=== PATIENT | female | born 1955 | race Caucasian/White ===

== ENCOUNTER 2017-02-11 12:56 | Emergency (ER) | payer OTHER ==
[2017-02-11 14:57] VITALS: BP 143/59
--- NOTE | 2017-02-11 15:16 | UC ---
Skin Complaint HPI - HPI Summary HPI Summary: bruises on the back of her right thigh--wants to be sure it is not Lyme--Has no known tick bite - History of Current Complaint Chief Complaint: UCSkin Time Seen by Provider: 02/11/17 15:13 Stated Complaint: TICK BITE Hx Obtained From: Patient ?: No Onset/Duration: Sudden Onset, Lasting Days, Still Present Timing: Constant Current Severity: None Location: Discrete - puple/red peticheal rash--not growing in size is itchy and not warm to touch Character: Redness Aggravating: Nothing Alleviating: Nothing Associated Signs & Symptoms: Positive: Negative Related History: Insect Bite/Sting - Allergy/Home Medications Allergies/Adverse Reactions: Allergies Allergy/AdvReac Type Severity Reaction Status Date / Time Cephalexin [From Keflex] Allergy Severe ITCHY HIVES Verified 02/11/17 15:26 Review of Systems Constitutional: Negative Skin: Rash - peticheal on back on right thigh Eyes: Negative ENT: Negative Respiratory: Negative Cardiovascular: Negative Gastrointestinal: Negative Genitourinary: Negative Motor: Negative Neurovascular: Negative Musculoskeletal: Negative Neurological: Negative Psychological: Negative All Other Systems Reviewed And Are Negative: Yes PMH/Surg Hx/FS Hx/Imm Hx Previously Healthy: No Endocrine History: Hypothyroidism, Dyslipidemia Cardiovascular History: Hypertension Other History Of: Negative For: Anticoagulant Therapy - Surgical History Surgical History: Yes Surgery Procedure, Year, and Place: 1964 TONSILLECTOMY - Family History Known Family History: Positive: None Family History: no cardiovascular issues in family lineage reported - Social History Occupation: Employed Full-time Lives: Alone Alcohol Use: None Substance Use Type: None Smoking Status (MU): Never Smoked Tobacco - Immunization History Most Recent Tetanus Shot: 2004 Physical Exam Triage Information Reviewed: Yes Appearance: Well-Appearing, No Pain Distress, Well-Nourished Vital Signs: Initial Vital Signs Temp 97.9 F 02/11/17 14:56 Pulse 89 02/11/17 14:56 Resp 16 02/11/17 14:56 BP 143/59 02/11/17 14:56 Pulse Ox 100 02/11/17 14:56 Vital Signs Reviewed: Yes Eye Exam: Normal Eyes: Positive: Conjunctiva Clear ENT Exam: Normal ENT: Positive: Normal ENT inspection, Hearing grossly normal, Pharynx normal, TMs normal. Negative: Nasal congestion, Nasal drainage, Trismus, Muffled/ hoarse voice Dental Exam: Normal Neck exam: Normal Neck: Positive: Supple, Nontender, No Lymphadenopathy Respiratory Exam: Normal Respiratory: Positive: Chest non-tender, Lungs clear, Normal breath sounds, No respiratory distress, No accessory muscle use Cardiovascular Exam: Normal Cardiovascular: Positive: RRR, No Murmur, Pulses Normal, Brisk Capillary Refill Musculoskeletal Exam: Normal Musculoskeletal: Positive: Strength Intact, ROM Intact, No Edema Neurological Exam: Normal Neurological: Positive: Alert, Muscle Tone Normal Psychological Exam: Normal Psychological: Positive: Normal Response To Family Skin Exam: Other Skin: Positive: Other - bruise red/purple rash 2 circles about 25 Cent size on 3 rows of liner bruise Course/Dx - Course Course Of Treatment: benadryl, cortisone, follow with pcp prn - Differential Diagnoses - Skin Complaint Differential Diagnoses: Allergic Reaction, Cellulitis, Impetigo, Poison Chanelle, Tick Born Illness, Urticaria - Diagnoses Provider Diagnoses: Inscet bite, petichial rash Discharge - Discharge Plan Condition: Stable Disposition: HOME Patient Education Materials: Insect Bite or Sting (ED), DASH Eating Plan (ED), Hypertension (ED) Referrals: Ele Wan MD [Primary Care Provider] - If Needed
== END 2017-02-11 15:30 | disposition home or self-care (01) ==
LOC: UCEAST 12:56
DX: S70.361A Insect bite (nonvenomous), right thigh, initial encounter (principal); W57.XXXA Bitten or stung by nonvenomous insect and other nonvenomous arthropods, initial encounter; R23.3 Spontaneous ecchymoses
CPT/HCPCS: 99211; G0463

== ENCOUNTER 2019-06-17 18:15 | Emergency (ER) | payer OTHER ==
[2019-06-17 18:29] VITALS: BP 155/82
--- NOTE | 2019-06-17 19:01 | UC ---
Skin Complaint HPI - HPI Summary HPI Summary: 63-year-old woman comes in with a chief complaint of a laceration to her right ring finger. Yesterday she was using scissors cutting and she accidentally cut an avulsion to the tip of her right index finger. She was able stop the bleeding with direct pressure however today with change the bandage the bleeding started again she's had a hard time stopping. She is not on any blood thinners and reports that her last tetanus shot was 2 years ago. - History of Current Complaint Chief Complaint: UCLaceration Time Seen by Provider: 06/17/19 18:53 Stated Complaint: FINGER LACERATION Pain Intensity: 2 - Allergy/Home Medications Allergies/Adverse Reactions: Allergies Allergy/AdvReac Type Severity Reaction Status Date / Time cephalexin [From Keflex] Allergy Hives Verified 06/17/19 18:30 PMH/Surg Hx/FS Hx/Imm Hx Previously Healthy: Yes Endocrine History: Hypothyroidism, Dyslipidemia Cardiovascular History: Hypertension Other History Of: Negative For: Anticoagulant Therapy - Surgical History Surgical History: Yes Surgery Procedure, Year, and Place: 1964 TONSILLECTOMY - Family History Known Family History: Positive: None Family History: no cardiovascular issues in family lineage reported - Social History Alcohol Use: None Substance Use Type: None Smoking Status (MU): Never Smoked Tobacco - Immunization History Most Recent Tetanus Shot: 2014 Review of Systems All Other Systems Reviewed And Are Negative: Yes Constitutional: Positive: Negative Skin: Positive: Other - see hpi Eyes: Positive: Negative ENT: Positive: Negative Respiratory: Positive: Negative Cardiovascular: Positive: Negative Gastrointestinal: Positive: Negative Motor: Positive: Negative Neurovascular: Positive: Negative Musculoskeletal: Positive: Negative Neurological: Positive: Negative Psychological: Positive: Negative Is Patient Immunocompromised?: No Physical Exam Triage Information Reviewed: Yes Appearance: Well-Appearing, No Pain Distress, Well-Nourished Vital Signs: Initial Vital Signs Temp 98.5 F 06/17/19 18:26 Pulse 60 06/17/19 18:26 Resp 12 06/17/19 18:26 BP 155/82 06/17/19 18:26 Pulse Ox 100 06/17/19 18:26 Vital Signs Reviewed: Yes Eye Exam: Normal Eyes: Positive: Conjunctiva Clear Neck: Positive: Supple Respiratory: Positive: No respiratory distress Musculoskeletal: Positive: Strength Intact, ROM Intact Neurological: Positive: Alert Psychological: Positive: Age Appropriate Behavior Skin: Positive: Other - On the tip of the right ring finger there is an avulsion laceration that's 1 cm long by 8 mm wide. It is bleeding minimally. Course/Dx - Course Course Of Treatment: On the right index finger the laceration was cleaned with soap and water and then I placed Surgicel on its and nursing placed a nonstick dressing. No sutures no glue. Patient will get reevaluated if worse or not improving or any questions or concerns. - Diagnoses Provider Diagnosis: Laceration of right ring finger Discharge ED - Sign-Out/Discharge Documenting (check all that apply): Patient Departure All imaging exams completed and their final reports reviewed: No Studies - Discharge Plan Condition: Stable Disposition: HOME Patient Education Materials: Finger Laceration (ED) Referrals: Ele Wan MD [Primary Care Provider] - Additional Instructions: FOLLOW UP WITH YOUR DOCTOR IF NOT COMPLETELY IMPROVED. GET RECHECKED SOONER IF YOUR CONDITION WORSENS OR ANY QUESTIONS OR CONCERNS. - Billing Disposition and Condition Condition: STABLE Disposition: Home
== END 2019-06-17 19:25 | disposition home or self-care (01) ==
LOC: UCEAST 18:15
DX: S61.214A Laceration without foreign body of right ring finger without damage to nail, initial encounter (principal); I10 Essential (primary) hypertension; Z88.1 Allergy status to other antibiotic agents; W45.8XXA Other foreign body or object entering through skin, initial encounter; Y93.89 Activity, other specified; Y92.9 Unspecified place or not applicable
CPT/HCPCS: 99212; G0463